=== PATIENT | male | born 1935 | race Caucasian/White ===

== ENCOUNTER 2019-06-10 21:21 | Inpatient (IN) | payer MEDICARE ==
[~2019-06-10] VITALS: Ht 177.8 cm; Wt 83.9 kg
[2019-06-10 21:43] LABS: BILIRUBIN NEGATIVE (NEGATIVE); GLUCOSE NEGATIVE (NEGATIVE); KETONE SMALL mg/dL (NEGATIVE); NITRITE NEGATIVE (NEGATIVE); SPECIFIC GRAVITY 1.025 (1.005-1.020); UROBILINOGEN NORMAL (NORMAL)
[2019-06-10 21:44] LABS: BASOPHILS 0.3 % (0-2); HEMOGLOBIN 17.3 g/dL (13.5-17.5); IMMATURE GRANULOCYTES 0.4 % (0-5); LYMPHOCYTES 13.4 % (15-50); MCH 30.6 pg (26.0-34.0); MCHC 33.3 g/dL (31.0-37.0); MCV 91.9 fL (80.0-100.0); MEAN PLATELET VOLUME 9.7 fL (7.4-10.4); MONOCYTES 9.7 % (2-11); NEUTROPHILS 75.2 % (40-80); PLATELET COUNT 268 10x3/uL (130-400); RBC 5.66 10x6/uL (4.20-6.10); RDW 14.4 % (11.5-14.5)
[2019-06-10 21:53] LABS: APTT 34.8 SECONDS (22.8-39.4); INR 1.07 (0.85-1.17); PROTIME 13.9 SECONDS (11.6-15.0)
[2019-06-10 21:56] LABS: CALC OSMOLALITY 286 mosm/kg (275-300); CALCIUM 8.8 mg/dL (8.5-10.1); CARBON DIOXIDE 29.3 mmol/L (21.0-32.0); CHLORIDE - SERUM 103 mmol/L (98-107); CREATININE - SERUM 1.1 mg/dL (0.6-1.3); GLUCOSE 181 mg/dL (74-106); POTASSIUM - SERUM 4.4 mmol/L (3.5-5.1); SODIUM 140 mmol/L (136-145); UREA NITROGEN 20 mg/dL (7-18); eGFR NON AFRICAN AMERICAN 68 mL/min (90-120)
[2019-06-10 22:04] LABS: ALBUMIN 3.7 g/dL (3.4-5.0); ALKALINE PHOSPHATASE 50 U/L (30-120); ALT (SGPT) 18 U/L (10-68); AMYLASE - SERUM 21 U/L (25-115); LIPASE 53 U/L (73-393); PROTEIN - SERUM 7.2 g/dL (6.4-8.2)
[2019-06-10 22:10] LABS: TROPONIN-I < 0.017 ng/mL (0.000-0.060)
--- NOTE | 2019-06-10 22:42 | NUR ---
PT TO RADIOLOGY
--- NOTE | 2019-06-10 23:00 | NUR ---
PT RETURNED FROM RADIOLOGY.
[2019-06-11] VITALS: BP 156/79; BP 159/79
[2019-06-11] MEDS ORDERED: ACETAMINOPHEN325 MG PO (00:30)
[2019-06-11] MEDS ORDERED: CENTRUM SILVER1 EAC3 PO (00:31)
[2019-06-11] MEDS ORDERED: TUMS X-STR300 MG PO (00:31)
[2019-06-11 00:32] VITALS: BP 158/79; BMI 25.8; BMI 26.6
[2019-06-11 04:00] VITALS: BP 131/70
[2019-06-11 04:30] LABS: BASOPHILS 0.4 % (0-2); EOSINOPHILS 1.5 % (0-7); HEMATOCRIT 45.3 % (42.0-54.0); HEMOGLOBIN 14.8 g/dL (13.5-17.5); IMMATURE GRANULOCYTES 0.2 % (0-5); LYMPHOCYTES 14.8 % (15-50); MCHC 32.7 g/dL (31.0-37.0); MCV 91.7 fL (80.0-100.0); MEAN PLATELET VOLUME 9.7 fL (7.4-10.4); MONOCYTES 12.3 % (2-11); NEUTROPHILS 70.8 % (40-80); PLATELET COUNT 258 10x3/uL (130-400); RBC 4.94 10x6/uL (4.20-6.10); RDW 14.5 % (11.5-14.5)
[2019-06-11 04:34] LABS: WBC 9.3 10x3/uL (4.8-10.8)
[2019-06-11 04:48] LABS: ALKALINE PHOSPHATASE 37 U/L (30-120); ALT (SGPT) 19 U/L (10-68); BILIRUBIN - TOTAL 0.93 mg/dL (0.2-1.3); CALCIUM 7.5 mg/dL (8.5-10.1); CARBON DIOXIDE 24.9 mmol/L (21.0-32.0); CHLORIDE - SERUM 107 mmol/L (98-107); MAGNESIUM - SERUM 2.2 mg/dL (1.8-2.4); PHOSPHOROUS 3.6 mg/dL (2.5-4.9); POTASSIUM - SERUM 3.9 mmol/L (3.5-5.1); PROTEIN - SERUM 5.8 g/dL (6.4-8.2); SODIUM 141 mmol/L (136-145); UREA NITROGEN 16 mg/dL (7-18)
[2019-06-11 04:57] LABS: CALC OSMOLALITY 282 mosm/kg (275-300); CREATININE - SERUM 0.7 mg/dL (0.6-1.3); GLUCOSE 112 mg/dL (74-106); eGFR NON AFRICAN AMERICAN > 90 mL/min (90-120)
--- NOTE | 2019-06-11 08:25 | NUR ---
PT ALERT X 4. BREATH SOUNDS CLEAR BILAT. IV TO LEFT AC, PATENT, DRESSING CDI. PT REPORTING NO PAIN AT THIS TIME. BED LOW, CALL LIGHT IN REACH. NO OTHER NEEDS AT THIS TIME.
[2019-06-11 12:15] LABS: HEMATOCRIT 45.6 % (42.0-54.0)
[2019-06-11 13:07] VITALS: Ht 177.8 cm; Wt 83.9 kg
[2019-06-11 13:53] VITALS: BP 119/68
[2019-06-11 18:10] VITALS: BP 143/64
--- NOTE | 2019-06-11 19:30 | NUR ---
PATIENT ALERT AND ORIENTED. WATCHING TV IN ROOM. DENIES PAIN. DENIES DISCOMFORT. STATE HE HASNT HAD A STOOL SINCE ADMISSION. ABDOMEN NON TENDER TO PALPATION. BOWEL SOUNDS ARE ACTIVE. LEFT AC IV IS PATENT. DENIES FURTHER NEEDS AT THIS TIME. CALL LIGHT CLOSE. CPOC.
[2019-06-11 20:00] VITALS: BP 140/56
--- NOTE | 2019-06-11 23:38 | NUR ---
RESTING WITH NO SIGNS OF DISTRESS AT THIS TIME.
[2019-06-12] VITALS: BP 136/67
--- NOTE | 2019-06-12 00:29 | NUR ---
I have reviewed this patient and I concur with the Shift Assessment completed by the Licensed Practical Nurse today this shift.
[2019-06-12 04:00] VITALS: BP 124/59
[2019-06-12 06:00] LABS: BASOPHILS 0.4 % (0-2); HEMATOCRIT 44.1 % (42.0-54.0); HEMOGLOBIN 14.3 g/dL (13.5-17.5); IMMATURE GRANULOCYTES 0.5 % (0-5); LYMPHOCYTES 12.1 % (15-50); MCH 30.3 pg (26.0-34.0); MCHC 32.4 g/dL (31.0-37.0); MCV 93.4 fL (80.0-100.0); MEAN PLATELET VOLUME 9.8 fL (7.4-10.4); MONOCYTES 12.1 % (2-11); NEUTROPHILS 71.9 % (40-80); PLATELET COUNT 223 10x3/uL (130-400); RBC 4.72 10x6/uL (4.20-6.10); RDW 14.7 % (11.5-14.5); WBC 9.4 10x3/uL (4.8-10.8)
[2019-06-12 06:21] LABS: CALC OSMOLALITY 277 mosm/kg (275-300); CALCIUM 7.6 mg/dL (8.5-10.1); CARBON DIOXIDE 25.7 mmol/L (21.0-32.0); CHLORIDE - SERUM 107 mmol/L (98-107); CREATININE - SERUM 0.7 mg/dL (0.6-1.3); GLUCOSE 103 mg/dL (74-106); MAGNESIUM - SERUM 2.1 mg/dL (1.8-2.4); PHOSPHOROUS 2.8 mg/dL (2.5-4.9); POTASSIUM - SERUM 4.4 mmol/L (3.5-5.1); SODIUM 140 mmol/L (136-145); eGFR NON AFRICAN AMERICAN > 90 mL/min (90-120)
[2019-06-12 06:23] LABS: UREA NITROGEN 11 mg/dL (7-18)
--- NOTE | 2019-06-12 08:00 | NUR ---
ASSESSMENT PER FLOW SHEET. PATIENT IS WITHOUT DISTRESS.MONITOR FOR NEEDS.CALL LIGHT IN REACH.
[2019-06-12 08:02] VITALS: BP 123/76
[2019-06-12 13:58] VITALS: BP 114/61
[2019-06-12 18:13] VITALS: BP 143/74
--- NOTE | 2019-06-12 19:15 | NUR ---
PATIENT ALERT AND ORIENTED WHEN ENTERING THE ROOM. PATIENT COMPLAINS OF GAS PAINS. REQUESTS PAIN MEDICINE. DENIES FURTHER NEEDS AT THIS TIME. CPOC.
[2019-06-12 20:00] VITALS: BP 133/64
--- NOTE | 2019-06-12 23:42 | NUR ---
RESTING WITH NO SIGNS OF SYMPTOMS OF DISTRESS AT THIS TIME. IV CONTINUES TO INFUSE. CPOC.
[2019-06-13] VITALS: BP 127/71
--- NOTE | 2019-06-13 00:55 | NUR ---
ANSWERED PATIENT CALL LIGHT. PATIENT STATES HIS BED IS WET. ASSESSED LEFT FOREARM IV SITE, WET AROUND THE AREA. IV CATH BUT BENT AND LEAKING DUE TO AREA. DC'D. CATH INTACT. NO FILITRATION. CHANGED BEDDING AND PROVIDED PATIENT WITH NEW GOWN. RESITED IV TO THE RIGHT FOREARM. 20G X 1 ATTEMPT. RESTARTED IV FLUIDS. DENIES FURTHER NEEDS. CALL LIGHT CLOSE. CPOC.
[2019-06-13 04:00] VITALS: BP 113/67
--- NOTE | 2019-06-13 04:25 | NUR ---
I have reviewed this patient and I concur with the Shift Assessment completed by the Licensed Practical Nurse today this shift.
[2019-06-13 05:14] LABS: BASOPHILS 0.5 % (0-2); EOSINOPHILS 2.9 % (0-7); HEMATOCRIT 42.9 % (42.0-54.0); HEMOGLOBIN 13.7 g/dL (13.5-17.5); IMMATURE GRANULOCYTES 0.2 % (0-5); LYMPHOCYTES 13.3 % (15-50); MCH 29.8 pg (26.0-34.0); MCHC 31.9 g/dL (31.0-37.0); MCV 93.5 fL (80.0-100.0); MEAN PLATELET VOLUME 9.7 fL (7.4-10.4); MONOCYTES 9.4 % (2-11); NEUTROPHILS 73.7 % (40-80); PLATELET COUNT 234 10x3/uL (130-400); RBC 4.59 10x6/uL (4.20-6.10); RDW 14.5 % (11.5-14.5); WBC 9.4 10x3/uL (4.8-10.8)
[2019-06-13 05:29] LABS: CALC OSMOLALITY 276 mosm/kg (275-300); CALCIUM 7.6 mg/dL (8.5-10.1); CARBON DIOXIDE 24.8 mmol/L (21.0-32.0); CHLORIDE - SERUM 108 mmol/L (98-107); CREATININE - SERUM 0.8 mg/dL (0.6-1.3); GLUCOSE 101 mg/dL (74-106); MAGNESIUM - SERUM 1.8 mg/dL (1.8-2.4); PHOSPHOROUS 2.9 mg/dL (2.5-4.9); POTASSIUM - SERUM 3.9 mmol/L (3.5-5.1); SODIUM 140 mmol/L (136-145); eGFR NON AFRICAN AMERICAN > 90 mL/min (90-120)
[2019-06-13 05:30] LABS: UREA NITROGEN 7 mg/dL (7-18)
--- NOTE | 2019-06-13 07:36 | NUR ---
resting in bed, no distress noted, iv infusing, plesant and coopertive, cont to monitor blood counts
[2019-06-13 09:50] VITALS: BP 118/63
[2019-06-13 13:40] VITALS: BP 124/70
--- NOTE | 2019-06-13 14:49 | MORECARE ---
CASE MANAGEMENT DISCHARGE SUMMARY PATIENT: TEOFILO GOMES UNIT: [id number] ADM DATE: 06/10/19 AGE: 83 : 35 SEX: M ROOM/BED: D.2217 AUTHOR: JAIDOC PHYSICIAN: REFERRING PHYSICIAN: YOANNA VELEZ MD DATE OF SERVICE: 06/13/19 Discharge Plan Patient Name: TEOFILO GOMES Facility: [facility]:[place] : 1935 Planned Disposition: Home or Self Care Anticipated Discharge Date: Discharge Date: Expected LOS: Initial Reviewer: [email or web address] Initial Review Date: 06/11/2019 Generated: 06/13/19 3:48 pm Comments DCP- Discharge Planning Updated by [email or web address]: Mallory Gregory on 06/13/19 1:[address] Patient Name: TEOFILO GOMES Admission Status: ER Accout number: [id number] Admission Date: 06-10-2019 : 1935 Admission Diagnosis: Attending: YOANNA VELEZ Current LOS: 3 Anticipated DC Date: Planned Disposition: Home or Self Care Primary Insurance: [employer] [facility] Discharge Planning Comments: CM met with patient to assess discharge planning needs. Patient lives independently at home with his and plans to return there at discharge. He feels safe going home and denies any needs. He has a lot of DME, but does not use any of it. DME: walker, WC, BSC, shower chair, Cane. 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 He does not want or need any HH at this time. I did give and explain an IMM to him. Signed copy in chart. CM will continue to follow and assist with DC planning as needed Cork Wirer: Mallory Gregory DCPIA - Discharge Planning Initial Assessment Updated by [email or web address]: Mallory Gregory on 06/13/19 2:44 pm * Is the patient Alert and Oriented? Yes * How many steps to enter\exit or inside your home? 06/21 * PCP DR Merced OCHOA * Pharmacy [facility] * Preadmission Environment Home with Family * ADLs Independent * Equipment Bedside Commode Cane Rolling Walker Shower Chair Walker Wheelchair * List name and contact numbers for known caregivers / representatives who currently or will assist patient after discharge: RICK ( ) [phone] * Verbal permission to speak to the caregivers and representatives has been obtained from the patient. N/A * Community resources currently utilized None * Additional services required to return to the preadmission environment? No * Can the patient safely return to the preadmission environment? Yes * Has this patient been hospitalized within the prior 30 days at any hospital? No Coverage Notice Reviewer: [id number] Joan Gregory Notice Issued Date-Time: 06/13/2019 14:00 Notice Type: IM Discharge Notice Notice Delivered To: Patient Relationship to Patient: Adjunct Nursing Faculty Name: Delivery Method: HAND - Hand Delivered Saskia Days: Prior Verbal Notification: Recipient Understood Notice: Yes Recipient Signature: Yes Med Rec Note Co-signed by Attending: Coverage Notice Comment: Patient Name: TEOFILO GOMES Page [id number] at 1449 All edits/amendments must be made on the electronic document DICTATION DATE: 06/13/191447 SLIVER FORMER: JANINE 06/13/191447 RPT#: [id number] DC DATE: STATUS: ADM IN [facility] [address] [place] [address] END OF REPORT
[2019-06-13 16:00] VITALS: BP 147/72
[2019-06-13 20:00] VITALS: BP 126/70
[2019-06-14] VITALS: BP 133/70
[2019-06-14 04:00] VITALS: BP 130/68
[2019-06-14 04:39] LABS: BASOPHILS 0.4 % (0-2); EOSINOPHILS 3.9 % (0-7); HEMATOCRIT 42.4 % (42.0-54.0); HEMOGLOBIN 13.9 g/dL (13.5-17.5); IMMATURE GRANULOCYTES 0.5 % (0-5); LYMPHOCYTES 13.2 % (15-50); MCHC 32.8 g/dL (31.0-37.0); MEAN PLATELET VOLUME 9.5 fL (7.4-10.4); MONOCYTES 10.7 % (2-11); NEUTROPHILS 71.3 % (40-80); PLATELET COUNT 252 10x3/uL (130-400); RBC 4.64 10x6/uL (4.20-6.10); RDW 14.4 % (11.5-14.5); WBC 9.6 10x3/uL (4.8-10.8)
[2019-06-14 04:49] LABS: MCV 91.4 fL (80.0-100.0)
[2019-06-14 04:56] LABS: CALC OSMOLALITY 274 mosm/kg (275-300); CALCIUM 7.6 mg/dL (8.5-10.1); CARBON DIOXIDE 25.5 mmol/L (21.0-32.0); CHLORIDE - SERUM 107 mmol/L (98-107); CREATININE - SERUM 0.8 mg/dL (0.6-1.3); GLUCOSE 119 mg/dL (74-106); MAGNESIUM - SERUM 1.6 mg/dL (1.8-2.4); PHOSPHOROUS 2.7 mg/dL (2.5-4.9); POTASSIUM - SERUM 3.6 mmol/L (3.5-5.1); SODIUM 138 mmol/L (136-145); UREA NITROGEN 6 mg/dL (7-18); eGFR NON AFRICAN AMERICAN > 90 mL/min (90-120)
[2019-06-14 09:05] VITALS: BP 147/74
[2019-06-14 12:54] VITALS: BP 146/76
--- NOTE | 2019-06-14 13:41 | NUR ---
Nutrition follow-up: Pt NPO for EGD today PO intake of regular diet has been ~50% of meals +BM Wt: 184# RDN following.
[2019-06-14 16:36] VITALS: BP 132/74
--- NOTE | 2019-06-14 18:39 | NUR ---
DISCHARGE PAPERWORK SIGNED, ALL QUESTIONS ANSWERED. IV TO RIGHT FOREARM DC'D, TIP INTACT. ESCORTED OUT VIA WHEELCHAIR.
--- NOTE | 2019-06-15 09:13 | MORECARE ---
CASE MANAGEMENT DISCHARGE SUMMARY PATIENT: TEOFILO GOMES UNIT: [id number] ADM DATE: 06/10/19 AGE: 83 : 35 SEX: M ROOM/BED: D.2217 AUTHOR: JAI,DOC PHYSICIAN: REFERRING PHYSICIAN: YOANNA VELEZ MD DATE OF SERVICE: 06/15/19 Discharge Plan Patient Name: TEOFILO GOMES Facility: [facility]:[place] : 1935 Planned Disposition: Home or Self Care Anticipated Discharge Date: Discharge Date: 06/14/2019 Expected LOS: Initial Reviewer: [email or web address] Initial Review Date: 06/11/2019 Generated: 06/15/19 10:13 am DCP- Discharge Planning Updated by [email or web address]: Mallory Gregory on 06/13/19 1:[address] Patient Name: TEOFILO GOMES Admission Status: ER Accout number: [id number] Admission Date: 06-10-2019 : 1935 Admission Diagnosis: Attending: YOANNA VELEZ Current LOS: 3 Anticipated DC Date: Planned Disposition: Home or Self Care Primary Insurance: [employer] [facility] Discharge Planning Comments: CM met with patient to assess discharge planning needs. Patient lives independently at home with his and plans to return there at discharge. He feels safe going home and denies any needs. He has a lot of DME, but does not use any of it. DME: walker, WC, BSC, shower chair, Cane. 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 He does not want or need any HH at this time. I did give and explain an IMM to him. Signed copy in chart. CM will continue to follow and assist with DC planning as needed Training Analyst: Mallory Gregory DCPIA - Discharge Planning Initial Assessment Updated by [email or web address]: Mallory Gregory on 06/13/19 2:44 pm * Is the patient Alert and Oriented? Yes * How many steps to enter\exit or inside your home? 06/21 * PCP DR Merced OCHOA * [facility] * Preadmission Environment Home with Family * ADLs Independent * Equipment Bedside Commode Cane Rolling Walker Shower Chair Walker Wheelchair * List name and contact numbers for known caregivers / representatives who currently or will assist patient after discharge: RICK ( ) [phone] * Verbal permission to speak to the caregivers and representatives has been obtained from the patient. N/A * Community resources currently utilized None * Additional services required to return to the preadmission environment? No * Can the patient safely return to the preadmission environment? Yes * Has this patient been hospitalized within the prior 30 days at any hospital? No Coverage Notice Reviewer: [id number] Joan Gregory Notice Issued Date-Time: 06/13/2019 14:00 Notice Type: IM Discharge Notice Notice Delivered To: Patient Relationship to Patient: Seismograph Shooter Name: Delivery Method: HAND - Hand Delivered Saskia Days: Prior Verbal Notification: Recipient Understood Notice: Yes Recipient Signature: Yes Med Rec Note Co-signed by Attending: Coverage Notice Comment: Last DP export: 06/13/19 1:49 p Patient Name: TEOFILO GOMES Page [id number] at 0913 All edits/amendments must be made on the electronic document DICTATION DATE: 06/15/19912 INTERVENTIONAL RADIOLOGY TECH: JANINE 06/15/19912 RPT#: [id number] DC DATE:06/14/19 STATUS: DIS IN [facility] [address] [place] [address] END OF REPORT
== END 2019-06-14 18:40 | disposition home or self-care (01) | DRG 391 ==
LOC: D.ER 21:21 → D.MS 22:59
PROVIDERS: Family Medicine; Surgery; ADMIT Internal Medicine Nephrology; ATTEND Internal Medicine Nephrology
PROC: 0DB48ZX Excision of Esophagogastric Junction, Via Natural or Artificial Opening Endoscopic, Diagnostic (ICD-10-PCS; principal; 2019-06-14 14:09)
DX: K52.9 Noninfective gastroenteritis and colitis, unspecified (principal); K29.01 Acute gastritis with bleeding; N17.9 Acute kidney failure, unspecified; K56.609 Unspecified intestinal obstruction, unspecified as to partial versus complete obstruction; I10 Essential (primary) hypertension; N40.0 Benign prostatic hyperplasia without lower urinary tract symptoms; E86.0 Dehydration; R13.10 Dysphagia, unspecified; K21.0 Gastro-esophageal reflux disease with esophagitis; K22.2 Esophageal obstruction